=== PATIENT | male | born 1975 | race Hispanic/Latino ===

== ENCOUNTER 2022-04-17 13:56 | Emergency (ER) | payer SELFPAY ==
[~2022-04-17] VITALS: Ht 167.6 cm; Wt 79.5 kg
[2022-04-17] MEDS ORDERED: ACETAMINOPHEN 500 MG TAB PO ONE (16:50)
[2022-04-17] MEDS ORDERED: BOOSTRIX/ADACEL VACCINE (DIPHTH/PERTUSS/ACELL/TETANUS) 0.5ML SYR IM ONE (16:50)
[2022-04-17] MEDS ORDERED: LIDOCAINE 2% MDV 20ML VIAL SC ONE (16:50)
[2022-04-17] MEDS ORDERED: CEPH500C PO (18:16)
[2022-04-17 18:25] VITALS: BP 119/73
== END 2022-04-17 18:41 | disposition home or self-care (01) ==
LOC: M ED 13:56
DX: S91.202A Unspecified open wound of left great toe with damage to nail, initial encounter (principal); W22.8XXA Striking against or struck by other objects, initial encounter; Y92.009 Unspecified place in unspecified non-institutional (private) residence as the place of occurrence of the external cause; Z23 Encounter for immunization

== ENCOUNTER 2023-02-13 19:47 | Emergency (ER) | payer SELFPAY ==
[~2023-02-13] VITALS: Ht 152.4 cm; Wt 76.2 kg
[~2023-02-13 19:47] MED LIST: CEPH500C PO
[2023-02-13] MEDS ORDERED: ONDANSETRON 4MG 2ML VIAL IV ONE (20:35)
[2023-02-13] MEDS ORDERED: MORPHINE 4 MG/ML 1ML VIAL IV ONE (20:35)
[2023-02-13] MEDS ORDERED: NS 1,000 ML IV SCH (20:35)
[2023-02-13 20:36] VITALS: TEMP 98.6
[2023-02-13] MEDS ORDERED: PANTOPRAZOLE 40MG VIAL IV ONE (20:40)
[2023-02-13 20:57] LABS: BASO % 0.4 % (0.0-1.0); EOS # 0.1 10^3/uL (0.0-0.5); EOS % 1.3 % (0.0-3.0); HEMATOCRIT 40.3 % (42.0-52.0); HEMOGLOBIN 14.4 g/dl (13.5-17.5); LYMPH # 2.3 10^3/uL (1.5-5.0); LYMPH % 33.4 % (24.0-44.0); MEAN CORPUSCULAR HEMOGLOBIN 29.2 pg (27.0-33.0); MEAN CORPUSCULAR HGB CONC 35.7 g/dl (32.0-36.5); MEAN CORPUSCULAR VOLUME 81.7 fl (80.0-96.0); MONO # 0.6 10^3/uL (0.0-0.8); MONO % 8.3 % (2.0-8.0); NEUTROPHILS # 3.8 10^3/uL (1.5-8.5); NEUTROPHILS % 55.9 % (36.0-66.0); PLATELET COUNT, AUTOMATED 310 10^3/uL (150-450); RED BLOOD COUNT 4.93 10^6/uL (4.30-6.10); WHITE BLOOD COUNT 6.9 10^3/uL (4.0-10.0)
[2023-02-13] MEDS: GASTROGRAFIN SOLUTION 30ML PO SCH ×2 (20:57→21:27)
[2023-02-13] MEDS ORDERED: HumuLIN R (REGULAR) INSULIN (NovoLIN R) **100U/ML** PER UNIT IV ONE (22:00)
[2023-02-13] MEDS ORDERED: ISOVUE-370 76% 100ML VIAL As Ordered ONE (22:15)
[2023-02-14 02:30] VITALS: O2SAT 94
[2023-02-14 02:59] VITALS: BP 131/80
[2023-02-14 11:45] LABS: BLOOD UREA NITROGEN 11 MG/DL (7-21); CREATININE FOR GFR 0.7 MG/DL (0.7-1.5); GLOMERULAR FILTRATION RATE > 60.0 (>60); GLUCOSE, FASTING 369 MG/DL (70-99)
[2023-02-14 11:46] LABS: ALBUMIN 4.2 G/DL (3.9-5.0); ALKALINE PHOSPHATASE 131 U/L (40-129); ALT/SGPT 26 U/L (1-41); AST/SGOT 17 U/L (5-40); BILIRUBIN,DIRECT < 0.2 MG/DL (0.1-0.4); BILIRUBIN,TOTAL < 0.7 MG/DL (0.2-1.3); CALCIUM LEVEL 9.3 MG/DL (8.4-10.2); CARBON DIOXIDE LEVEL 24 MEQ/L (22-30); CHLORIDE LEVEL 98 MEQ/L (98-107); POTASSIUM SERUM 4.3 MEQ/L (3.6-5.0); SODIUM LEVEL 133 MEQ/L (134-153)
[2023-02-14 11:47] LABS: LIPASE 48 U/L (13-60)
== END 2023-02-14 03:36 | disposition home or self-care (01) ==
LOC: M ED 19:47
DX: E11.65 Type 2 diabetes mellitus with hyperglycemia (principal)
CPT/HCPCS: 74176; 74177; 80047; 80048; 80076; 81001; 83690; 84484; 85025; 93005; 93041; 96361; 96374; 96375; 99285; C9113; J1815; J2405; Q9963; Q9967

== ENCOUNTER → 2023-03-05 | Outpatient (CLI) | payer SELFPAY ==
[2023-03-05 15:12] LABS: HEMATOCRIT 40.8 % (42.0-52.0); HEMOGLOBIN 14.2 g/dl (13.5-17.5); MEAN CORPUSCULAR HEMOGLOBIN 29.5 pg (27.0-33.0); MEAN CORPUSCULAR HGB CONC 34.8 g/dl (32.0-36.5); MEAN CORPUSCULAR VOLUME 84.8 fl (80.0-96.0); PLATELET COUNT, AUTOMATED 304 10^3/uL (150-450); RED BLOOD COUNT 4.81 10^6/uL (4.30-6.10); WHITE BLOOD COUNT 6.7 10^3/uL (4.0-10.0)
[2023-03-05 15:38] LABS: ALBUMIN 3.9 G/DL (3.2-5.2); ALKALINE PHOSPHATASE 127 U/L (46-116); ALT/SGPT 35 U/L (7.0-40); AST/SGOT 21 U/L (<34); BLOOD UREA NITROGEN 13 MG/DL (9-23); CALCIUM LEVEL 8.9 MG/DL (8.5-10.1); CARBON DIOXIDE LEVEL 25 MMOL/L (20-31); CHLORIDE LEVEL 102 MMOL/L (98-107); CHOLESTEROL LEVEL 142 MG/DL (<200); CHOLESTEROL RISK RATIO 4.49 (<5); CREATININE FOR GFR 0.57 MG/DL (0.70-1.30); GLOMERULAR FILTRATION RATE > 60.0 (>60); GLUCOSE, FASTING 400 MG/DL (60-100); HDL CHOLESTEROL 31.6 MG/DL (>40); NON-HDL-C 110.4 MG/DL; SODIUM LEVEL 137 MMOL/L (136-145); THYROID STIMULATING HORMONE 1.869 uIU/ML (0.55-4.78); TOTAL 25(OH) VITAMIN D 27.4 NG/ML (20.0-100.0); TOTAL PROTEIN 6.7 G/DL (5.7-8.2); TRIGLYCERIDES LEVEL 367 MG/DL (<150)
== END ==
LOC: M LAB 14:21
PROVIDERS: ATTEND Nurse Practitioner Family
DX: E55.9 Vitamin D deficiency, unspecified (principal)